=== PATIENT | female | born 1985 | race Caucasian/White ===

== ENCOUNTER → 2017-03-10 13:16 | Outpatient (CLI) | payer MEDICAID ==
[2014-03-09 07:10] VITALS: BMI 28.3
[~2017-03-10 13:16] MED LIST: BACTRIM DS TABL1 TAB PO; HYDROCODONE-APA1 TAB PO; SOMA350 MG PO; WELLBUTRIN SR150 MG PO
== END | disposition home or self-care (01) ==
LOC: D.MRI 13:16
DX: M25.532 Pain in left wrist (principal)

== ENCOUNTER → 2017-04-22 08:44 | Outpatient (CLI) | payer MEDICAID ==
[2014-03-09 07:10] VITALS: BMI 28.3
--- NOTE | ~2017-04-22 | EMG ---
PATIENT:CHELSIE AQUINO DATE OF SERVICE: 04/22/17 MEDICAL RECORD: [id number] DATE OF : 81 LOCATION: [facility] ADMISSION DATE: REFERRING PHYSICIAN: PATRICK COUGHLIN M.D. INTERPRETING PHYSICIAN: JAMILAH GRIMM MD DATE OF SERVICE: 04/22/2017 REFERRED BY: Dr. Coughlin as an outpatient. ELECTROMYOGRAPHIC DATA: Electromyographic examination is limited to the left upper extremity. In the left upper extremity, left median motor stimulation elicits a compound motor action potential with a distal latency of 3.8 milliseconds, peak amplitude of 5 millivolts and calculated conduction velocity of 50 meters per second. Left ulnar motor stimulation elicits a compound motor action potential with a distal latency of 2.7 milliseconds, peak amplitude of 8 millivolts, and calculated conduction velocity of 56 meters per second. Left ulnar motor stimulation across the elbow fails to elicit evidence of conduction block at this level. Antidromic left median sensory stimulation elicits a response with a distal latency of 4.1 milliseconds, amplitude of 13 microvolts and calculated conduction velocity of 55 meters per second. Antidromic left ulnar sensory stimulation elicits a response with a distal latency of 3.2 milliseconds, amplitude of 20 microvolts and calculated conduction velocity of 60 meters per second. The left median F wave has a latency of 26 milliseconds. Needle electrode examination is limited to the left upper extremity as well. Muscles interrogated include the abductor pollicis brevis, first dorsal interosseous, abductor digiti minimi, pronator teres, biceps brachii, triceps and deltoid. There is no abnormality of insertional activity and no abnormal spontaneous activity is seen in all muscles interrogated. Motor unit potential morphology and the pattern of motor unit potential firing and recruitment is normal in all muscles sampled. 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 There is no electrical evidence of a superimposed cervical radiculopathy or other lesion of the lower motor neuron in the left upper extremity at this time. There is no evidence of active denervation. TRANSINT:[id number] Voice Confirmation ID: [id number] DOCUMENT ID: [id number] JAMILAH GRIMM MD CC: [id number] DICTATION DATE: 04/23/17 0841 MANAGER BEAUTY: 04/24/17 0103 DEP CLI 04/22/[address] [facility] [address] [place] [address]
== END | disposition home or self-care (01) ==
LOC: D.CN 08:30
DX: M25.532 Pain in left wrist (principal)

== ENCOUNTER 2019-05-15 14:55 | Emergency (ER) | payer MEDICAID ==
[~2019-05-15] VITALS: Ht 158.8 cm; Wt 72.7 kg
[2019-05-15 15:08] VITALS: Ht 158.8 cm; Wt 72.7 kg
[2019-05-15] MEDS ORDERED: DOXYCYCLINE HY100 M2 PO (16:23)
[2019-05-15] MEDS ORDERED: CLEOCIN HCL300 MG PO (16:23)
[2019-05-15] MEDS ORDERED: TORADOL10 MG PO (16:23)
[2019-05-15 16:31] VITALS: BP 126/81
== END 2019-05-15 16:36 | disposition home or self-care (01) ==
LOC: D.ER 14:55
DX: L03.116 Cellulitis of left lower limb (principal)